=== PATIENT | female | born 1945 | race Two or more races ===

== ENCOUNTER 2025-06-14 09:22 | Outpatient (CLI) | payer MEDICARE, MEDICAID ==
[2025-06-14 10:32] LABS: Hematocrit 37.1 % (36.0-46.0); Hemoglobin 12.6 g/dL (12.2-16.2); Mean Corpuscular Hemoglobin 32.6 pg (28.0-32.0); Mean Corpuscular Volume 96.1 fL (80.0-100.0); Nucleated Red Blood Cells % 0.0 %
[2025-06-14 10:34] LABS: Urine Protein, UAD 1+ (Negative)
[2025-06-14 10:55] LABS: Alanine Aminotransferase 11 U/L (7-40); Albumin 4.2 g/dL (3.2-4.8); Alkaline Phosphatase 82 U/L (46-116); Anion Gap 9 (5-15); BUN/Creatinine Ratio 19.4 (10.0-20.0); Bilirubin, Total 0.3 mg/dL (0.2-1.0); Blood Urea Nitrogen 19 mg/dL (9-23); Calcium 9.3 mg/dL (8.7-10.4); Carbon Dioxide 26 mmol/L (20-31); Chloride 107 mmol/L (98-107); Cholesterol 216 mg/dL (< 200); Glucose 106 mg/dL (74-106); HDL Cholesterol 37 mg/dL (40-59); Potassium 4.4 mmol/L (3.5-5.1); Sodium 142 mmol/L (136-145); Total Protein 7.5 g/dL (5.7-8.2); Triglycerides 228 mg/dL (< 150)
== END 2025-06-14 17:00 | disposition home or self-care (01) ==
LOC: LAB 09:22
PROVIDERS: ATTEND Internal Medicine
DX: I10 Essential (primary) hypertension (principal); I16.0 Hypertensive urgency; Z13.39 Encounter for screening examination for other mental health and behavioral disorders; Z00.01 Encounter for general adult medical examination with abnormal findings; R73.03 Prediabetes
CPT/HCPCS: 36415; 80053; 80061; 81001; 83036; 84439; 84443; 85025

== ENCOUNTER 2025-08-31 08:49 | Outpatient (CLI) | payer MEDICARE, MEDICAID ==
[2025-08-31 09:49] LABS: Urine Protein, UAD 1+ (Negative)
[2025-08-31 09:51] LABS: Alanine Aminotransferase 15 U/L (7-40); Albumin 4.1 g/dL (3.2-4.8); Alkaline Phosphatase 91 U/L (46-116); Anion Gap 11 (5-15); BUN/Creatinine Ratio 20.7 (10.0-20.0); Calcium 9.2 mg/dL (8.7-10.4); Carbon Dioxide 25 mmol/L (20-31); Glucose 103 mg/dL (74-106); Potassium 4.7 mmol/L (3.5-5.1); Sodium 144 mmol/L (136-145); Total Protein 7.8 g/dL (5.7-8.2)
[2025-08-31 09:52] LABS: Bilirubin, Total 0.4 mg/dL (0.2-1.0)
[2025-08-31 09:53] LABS: Blood Urea Nitrogen 25 mg/dL (9-23); Chloride 108 mmol/L (98-107)
== END 2025-09-03 17:00 | disposition home or self-care (01) ==
LOC: LAB 08:49
PROVIDERS: ATTEND Internal Medicine
DX: I12.9 Hypertensive chronic kidney disease with stage 1 through stage 4 chronic kidney disease, or unspecified chronic kidney disease (principal); N18.31 Chronic kidney disease, stage 3a; E78.2 Mixed hyperlipidemia; R82.90 Unspecified abnormal findings in urine
CPT/HCPCS: 36415; 80053; 81001; 86141

== ENCOUNTER 2025-09-26 08:37 | Outpatient (CLI) | payer MEDICARE, MEDICAID ==
[2025-09-26 09:37] LABS: Creatine Kinase IFCC 42.0 U/L (34-145); Urine Protein, UAD 2+ (Negative)
== END 2025-09-26 17:00 | disposition home or self-care (01) ==
LOC: LAB 08:37
PROVIDERS: ATTEND Internal Medicine
DX: E78.2 Mixed hyperlipidemia (principal); E11.8 Type 2 diabetes mellitus with unspecified complications; R79.82 Elevated C-reactive protein (CRP); R79.9 Abnormal finding of blood chemistry, unspecified
CPT/HCPCS: 36415; 81001; 82550; 83036; 86141

== ENCOUNTER 2025-10-08 09:11 | Outpatient (CLI) | payer MEDICARE, MEDICAID ==
[2025-10-08 10:24] LABS: Anion Gap 9 (5-15); Carbon Dioxide 25 mmol/L (20-31); Potassium 4.9 mmol/L (3.5-5.1); Sodium 142 mmol/L (136-145)
[2025-10-08 10:26] LABS: Calcium 9.9 mg/dL (8.7-10.4); Chloride 108 mmol/L (98-107)
[2025-10-08 10:31] LABS: BUN/Creatinine Ratio 26.6 (10.0-20.0); Blood Urea Nitrogen 37 mg/dL (9-23); Glucose 106 mg/dL (74-106)
[2025-10-08 10:51] LABS: Microalb/Creat Ratio, Urine 588.0
== END 2025-10-08 17:00 | disposition home or self-care (01) ==
LOC: LAB 09:11
PROVIDERS: ATTEND Internal Medicine
DX: I10 Essential (primary) hypertension (principal); E11.9 Type 2 diabetes mellitus without complications
CPT/HCPCS: 36415; 80048; 82043; 82570